=== PATIENT | female | born 1990 | race American Indian/Alaskan Native ===

== ENCOUNTER 2019-01-27 05:55 | Emergency (ER) | payer OTHER ==
[2019-01-27 07:45] VITALS: BP 134/89
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
== END 2019-01-27 08:52 | disposition home or self-care (01) ==
LOC: ED 05:55
DX: S43.401A Unspecified sprain of right shoulder joint, initial encounter (principal); V89.2XXA Person injured in unspecified motor-vehicle accident, traffic, initial encounter; Y93.89 Activity, other specified; Y92.488 Other paved roadways as the place of occurrence of the external cause; Y99.8 Other external cause status
CPT/HCPCS: 99283

== ENCOUNTER 2019-04-11 20:58 | Emergency (ER) | payer SELFPAY ==
--- NOTE | 2019-04-11 21:08 | Emergency Department Report ---
Blank Doc - Documentation Documentation: pt states has nausea for two weeks no V/D surapubic cramping LNMP: February 15-march 18 no urinary sx never had before "states her nipples hurt" has not taken anything at all no PMHx no daily meds no allergies to medication non smoker non drinker no drug use
[2019-04-11 21:29] LABS: Basophils # (Auto) 0.1 K/mm3 (0.0-0.1); Eosinophils # (Auto) 0.1 K/mm3 (0.0-0.4); Eosinophils % (Auto) 0.6 % (0.0-4.3); Hematocrit 41.4 % (30.3-42.9); Hemoglobin 13.6 gm/dl (10.1-14.3); Lymphocytes % (Auto) 33.3 % (13.4-35.0); Mean Corpuscular HGB Conc 33 % (30-34); Mean Corpuscular Volume 83 fl (79-97); Monocytes # (Auto) 0.5 K/mm3 (0.0-0.8); Platelet Count 259 K/mm3 (140-440); Red Blood Count 5.01 M/mm3 (3.65-5.03); Red Cell Distribution Width 15.1 % (13.2-15.2)
[2019-04-11 21:35] LABS: BUN/Creatinine Ratio 9; Blood Urea Nitrogen 10 mg/dL (7-17); Hemolysis Index 4
[2019-04-11 22:49] LABS: HCG Qualitative,Urine Negative (Negative)
[2019-04-11 22:51] LABS: Bacteria,Urine 1+ /HPF (Negative); Bilirubin,Urine NEG (Negative); Blood,Urine NEG (Negative); Color,Urine Yellow (Yellow); Mucus,Urine 3+ /HPF; Protein,Urine <15 mg/dL mg/dL (Negative); Urobilinogen,Urine < 2.0 mg/dL (<2.0)
--- NOTE | 2019-04-12 01:51 | Emergency Department Report ---
ED Female HPI - General Chief complaint: Abdominal Pain Stated complaint: ABD PAIN Time Seen by Provider: 04/11/19 21:06 Source: patient Mode of arrival: Ambulatory Limitations: No Limitations - History of Present Illness Initial comments: pt presents for llq pain x 1 week intermittent with urinary frequency no fever no chills no n/v no back ingrid SHAFER Complaint: dysuria Onset/Timin -: week(s) Severity: moderate Severity scale (0 -10): 5 Quality: burning Consistency: constant Improves with: none, urination Are you Now?: No - Related Data Previous Rx's Medication Instructions Recorded Last Taken Type Cyclobenzaprine [Flexeril] 10 mg PO TID PRN #20 tablet 01/27/19 Unknown Rx Ibuprofen 800 mg PO TID 5 Days #15 tablet 01/27/19 Unknown Rx Ibuprofen [Motrin 800 MG tab] 800 mg PO Q8HR PRN #30 tablet 04/12/19 Unknown Rx Nitrofurantoin [place]/M-Cryst 100 mg PO Q12HR 7 Days #14 capsule 04/12/19 Unknown Rx [Macrobid CAP] Allergies Allergy/AdvReac Type Severity Reaction Status Date / Time No Known Allergies Allergy Verified 04/11/19 21:02 ED Review of Systems ROS: Stated complaint: ABD PAIN Other details as noted in HPI Constitutional: denies: chills, fever Eyes: denies: eye pain, eye discharge, vision change ENT: denies: ear pain, throat pain Respiratory: denies: cough, shortness of breath, wheezing Cardiovascular: denies: chest pain, palpitations Endocrine: no symptoms reported Gastrointestinal: denies: abdominal pain, nausea, diarrhea Genitourinary: frequency. denies: urgency, dysuria, hematuria, discharge, abnormal menses, dyspareunia Musculoskeletal: denies: back pain, joint swelling, arthralgia, myalgia Skin: denies: rash, lesions Neurological: numbness, confusion. denies: headache, weakness, paresthesias, vertigo Psychiatric: denies: anxiety, depression Hematological/Lymphatic: denies: easy bleeding, easy bruising ED Past Medical Hx - Past Medical History Previous Medical History?: No - Surgical History Past Surgical History?: No - Social History Smoking Status: Never Smoker Substance Use Type: None - Medications Home Medications: Home Medications Medication Instructions Recorded Confirmed Last Taken Type Cyclobenzaprine [Flexeril] 10 mg PO TID PRN #20 tablet 01/27/19 Unknown Rx Ibuprofen 800 mg PO TID 5 Days #15 tablet 01/27/19 Unknown Rx Ibuprofen [Motrin 800 MG tab] 800 mg PO Q8HR PRN #30 tablet 04/12/19 Unknown Rx Nitrofurantoin [place]/M-Cryst 100 mg PO Q12HR 7 Days #14 capsule 04/12/19 Unknown Rx [Macrobid CAP] ED Physical Exam - General Limitations: No Limitations General appearance: alert, in no apparent distress - Head Head exam: Present: normocephalic, normal inspection - Eye Eye exam: Present: normal appearance, PERRL, EOMI - ENT ENT exam: Present: normal orophraynx, mucous membranes moist, TM's normal bilaterally, normal external ear exam, other - Neck Neck exam: Present: normal inspection, full ROM. Absent: meningismus, lymphadenopathy - Respiratory Respiratory exam: Present: normal lung sounds bilaterally. Absent: respiratory distress, wheezes, stridor, chest wall tenderness - Cardiovascular Cardiovascular Exam: Present: regular rate, normal rhythm, bradycardia, tachycardia, irregular rhythm, normal heart sounds. Absent: systolic murmur, diastolic murmur, rubs, gallop - GI/Abdominal GI/Abdominal exam: Present: soft, normal bowel sounds. Absent: distended, tenderness, guarding, rebound, rigid, organomegaly, mass, bruit, hernia - Rectal Rectal exam: Present: deferred, normal inspection, normal rectal tone, decreased rectal tone. Absent: mass - External exam: Present: normal external exam Speculum exam: Present: normal speculum exam - Extremities Exam Extremities exam: Present: normal inspection, normal capillary refill, calf tenderness - Back Exam Back exam: Present: normal inspection, full ROM, CVA tenderness (R). Absent: tenderness, CVA tenderness (L), muscle spasm, paraspinal tenderness, vertebral tenderness, rash noted - Neurological Exam Neurological exam: Present: alert, oriented X3 ED Course Vital Signs 04/11/19 21:07 Temperature 98.7 F Pulse Rate 101 H Respiratory 19 Rate Blood Pressure 128/83 O2 Sat by Pulse 97 Oximetry ED Medical Decision Making - Lab Data Result diagrams: 04/11/19 21:14 04/11/19 21:14 Critical care attestation.: If time is entered above; I have spent that time in minutes in the direct care of this critically ill patient, excluding procedure time. ED Disposition Clinical Impression: Dysuria Abdominal pain Qualifiers: Abdominal location: unspecified location Qualified Code(s): R10.9 - Unspecified abdominal pain Disposition: TO HOME OR SELFCARE Is pt being admited?: No Does the pt Need Aspirin: No Condition: Stable Instructions: Abdominal Pain (ED), Dysuria (ED) Prescriptions: Nitrofurantoin [place]/M-Cryst [Macrobid CAP] 100 mg PO Q12HR 7 Days #14 capsule Ibuprofen [Motrin 800 MG tab] 800 mg PO Q8HR PRN #30 tablet PRN Reason: pain Referrals: [facility] [Outside] - 3-5 Days Forms: Work/School Release Form(ED)
[2019-04-12 02:00] VITALS: BP 128/76
== END 2019-04-12 02:00 | disposition home or self-care (01) ==
LOC: ED 20:58
DX: R30.0 Dysuria (principal); R10.9 Unspecified abdominal pain
CPT/HCPCS: 36415; 80048; 81001; 81025; 85025; 99283

== ENCOUNTER 2019-06-16 03:28 | Emergency (ER) | payer BC ==
[2019-06-16] MEDS ORDERED: NORCO 5/325 PO ONE (03:50)
--- NOTE | 2019-06-16 03:55 | Emergency Department Report ---
Upper Extremity - HPI Chief Complaint: Extremity Injury, Upper Stated Complaint: RT HAND FINGER INJURY Time Seen by Provider: 06/16/19 03:51 Upper Extremity: Right Index Finger (tip laceration superficial ) Occurred When: Today Mechanism: Crush (slammed in car door) Symptoms: Yes Pain with Movement, Yes Limited Range of Movement (restricted by pain ), Yes Laceration or Abrasion (small laceration ), No Deformity, No Numbness, No Weakness, No Swelling, No Bruising/Ecchymosis Other History: pt states right index finger accidentally slammed in car door causing small tip laceration bleeding controlled by direct pressure rom intact restricted by pain there is no deformity. ED Review of Systems ROS: Stated complaint: RT HAND FINGER INJURY Other details as noted in HPI Constitutional: denies: chills, fever Eyes: denies: eye pain, eye discharge, vision change ENT: denies: ear pain, throat pain Respiratory: denies: cough, shortness of breath, wheezing Cardiovascular: denies: chest pain, palpitations Endocrine: no symptoms reported Gastrointestinal: denies: abdominal pain, nausea, diarrhea Genitourinary: denies: urgency, dysuria, discharge Musculoskeletal: other (right finger tip laceration) Skin: other (laceration as above ). denies: rash, lesions Neurological: denies: headache, weakness, paresthesias Psychiatric: denies: anxiety, depression Hematological/Lymphatic: denies: easy bleeding, easy bruising ED Past Medical Hx - Past Medical History Previous Medical History?: No - Surgical History Past Surgical History?: No - Social History Smoking Status: Never Smoker Substance Use Type: None - Medications Home Medications: Home Medications Medication Instructions Recorded Confirmed Last Taken Type Cyclobenzaprine [Flexeril] 10 mg PO TID PRN #20 tablet 01/27/19 Unknown Rx Ibuprofen 800 mg PO TID 5 Days #15 tablet 01/27/19 Unknown Rx Ibuprofen [Motrin 800 MG tab] 800 mg PO Q8HR PRN #30 tablet 04/12/19 Unknown Rx Nitrofurantoin [place]/M-Cryst 100 mg PO Q12HR 7 Days #14 capsule 04/12/19 Unknown Rx [Macrobid CAP] Neomycin/Polymyxin B/Pramoxine 1 applicatio TP BID 10 Days #1 tube 06/16/19 Unknown Rx [Neosporin + Pain Relief Cream] traMADol [Ultram] 50 mg PO Q6HR PRN #12 tablet 06/16/19 Unknown Rx Upper Extremity Exam - Exam General: Vital signs noted. No distress. Alert and acting appropriately. Head and Torso: No HEENT Abnormality, No Neck Tenderness, No Chest/Lungs Abnormality, No Abdominal Tenderness, No Back Tenderness Shoulder Exam: Yes Normal Range of Motion in Shoulder, No Shoulder Tenderness, No Clavicle Tenderness, No Shoulder Deformity, No AC Joint Tenderness Arm Exam: No Arm/Humerus Tenderness, No Arm Deformity Elbow: No Elbow Tenderness, No Normal Range of Motion in Elbow, No Elbow Deformity Forearm: No Forearm Tenderness, No Forearm Deformity, No Pain with Pronation, No Pain with Supination Wrist: Yes Normal ROM in Wrist, No Wrist Tenderness, No Wrist Deformity, No S nuffbox Tenderness, No Pain with Axial Thumb Compression Hand: Yes Digit Tenderness, Yes Normal ROM in Digit(s), No Hand Tenderness, No Digit(s) Deformity, No Tendon Dysfunction CMS Exam: Yes Broken Skin (right index finger tip ), Yes Normal Distal Pulses, Yes Normal Capillary Refill, Yes Normal Distal Sensation - Laceration /Wound Repair Right Distal Dorsal Finger Wound Location: upper extremity Wound Length (cm): 1 (less than 1 cm superficial ) Wound's Depth, Shape: superficial Wound Explored: clean Irrigated w/ Saline (ccs): 10 Betadine Prep?: Yes Anesthesia: 1% Lidocaine Volume Anesthetic (ccs): 1 (digital block ) Wound Debrided: none required Number of Sutures: 0 (bandaid ) Layer Closure?: No Sterile Dressing Applied?: Yes Progress: right distal index finger tip laceration no deformity bleeding controlled by direct press, wound cleaned with betadine solution, irrigated with sterile saline x 10cc , wound is superficial, bandaid applied rom remains intact no bleeding , CMS intact pt given wound care instructions. pt verbalized agreement and understanding of same. ED Medical Decision Making - Radiology Data Radiology results: report reviewed, image reviewed no fracture no soft tissue abnormality , - Medical Decision Making xray no fracture no soft tissue abnormality , tetanus is up to date, pt given wound care instructions, pain is resolved , rom intact shot man < 3 sec bilat plan dc to home with rx for ultram prn pain, pt with use otc neosporin , follow up with pcp in 2-3 days for wound check return to ed if symptoms worsen. pt dc'd to home in stable condition at this time. vital signs: 121/81, 16m 87, 98.3, 99% Critical care attestation.: If time is entered above; I have spent that time in minutes in the direct care of this critically ill patient, excluding procedure time. ED Disposition Clinical Impression: Finger laceration Qualifiers: Encounter type: initial encounter Finger: index finger Damage to nail status: without damage Foreign body presence: without foreign body Laterality: right Qualified Code(s): S61.210A - Laceration without foreign body of right index finger without damage to nail, initial encounter Sprain, finger Qualifiers: Encounter type: initial encounter Finger: index finger Sprain of finger site: interphalangeal joint Laterality: right Qualified Code(s): S63.630A - Sprain of interphalangeal joint of right index finger, initial encounter Disposition: TO HOME OR SELFCARE Is pt being admited?: No Does the pt Need Aspirin: No Condition: Stable Instructions: Finger Sprain (ED) Prescriptions: Neomycin/Polymyxin B/Pramoxine [Neosporin + Pain Relief Cream] 1 applicatio TP BID 10 Days #1 tube traMADol [Ultram] 50 mg PO Q6HR PRN #12 tablet PRN Reason: Pain Referrals: ANGY PERKINS MD [Primary Care Provider] - 3-5 Days Forms: Work/School Release Form(ED) Time of Disposition: 04:29
--- NOTE | 2019-06-16 04:20 | XRay Report ---
RIGHT HAND 3 VIEWS INDICATION / CLINICAL INFORMATION: Right index finger pain after smashing with car door. Small laceration at finger tip. COMPARISON: None available. FINDINGS: BONES and JOINT(S): No acute fracture or subluxation. No significant arthritis. SOFT TISSUES: No significant abnormality. ADDITIONAL FINDINGS: None. IMPRESSION: No acute findings. Signer Name: Billy Eng MD Signed: 06/16/2019 4:16 AM Workstation Name: [id number]
== END 2019-06-16 05:34 | disposition home or self-care (01) ==
LOC: ED 03:28
DX: S61.210A Laceration without foreign body of right index finger without damage to nail, initial encounter (principal); S63.630A Sprain of interphalangeal joint of right index finger, initial encounter; Z79.899 Other long term (current) drug therapy; W23.0XXA Caught, crushed, jammed, or pinched between moving objects, initial encounter; Y93.89 Activity, other specified; Y92.89 Other specified places as the place of occurrence of the external cause; Y99.8 Other external cause status
CPT/HCPCS: 99283

== ENCOUNTER 2019-11-28 13:23 | Emergency (ER) | payer SELFPAY ==
[2019-11-28 13:31] VITALS: BP 134/86
--- NOTE | 2019-11-28 13:57 | Event Note ---
ED Screening Note Date of service: 11/28/19 Time: 13:55 ED Screening Note: Pt complains of lower abdominal pain with urinating and dysuria x 4 days +frequency +hematuria This initial assessment/diagnostic orders/clinical plan/treatment(s) is/are subject to change based on patients health status, clinical progression and re- assessment by fellow clinical providers in the ED. Further treatment and workup at subsequent clinical providers discretion. Patient/guardian urged not to elope from the ED as their condition may be serious if not clinically assessed and managed. Initial orders include: UA
[2019-11-28] MEDS ORDERED: IBUPROFEN 600 MG TAB PO ONE (14:00)
[2019-11-28 14:24] LABS: Bilirubin,Urine NEG (Negative); Blood,Urine LG (Negative); Color,Urine Yellow (Yellow); Urobilinogen,Urine < 2.0 mg/dL (<2.0)
[2019-11-28 14:25] LABS: HCG Qualitative,Urine Negative (Negative); Protein,Urine >500 mg/dL (Negative); RBC,Urine > 182.0 /HPF (0.0-6.0); WBC,Urine > 182.0 /HPF (0.0-6.0)
--- NOTE | 2019-11-28 14:33 | Emergency Department Report ---
ED General Adult HPI - General Chief complaint: Urogenital-Female Stated complaint: PELVIC PAIN Time Seen by Provider: 11/28/19 13:55 Source: patient Mode of arrival: Ambulatory Limitations: No Limitations - History of Present Illness Initial comments: 29 yo AA F pt complains of lower abdominal pain with urinating and dysuria x 4 days. Admits to urinary frequency and hematuria. She denies any fever/chills/sweats, vaginal discharge/bleeding, flank pain, or hx of kidney stones. She rates her pain as a 9/10 in severity and describes the pain as stabbing and burning. -: Sudden - Related Data Previous Rx's Medication Instructions Recorded Last Taken Type Cyclobenzaprine [Flexeril] 10 mg PO TID PRN #20 tablet 01/27/19 Unknown Rx Ibuprofen 800 mg PO TID 5 Days #15 tablet 01/27/19 Unknown Rx Ibuprofen [Motrin 800 MG tab] 800 mg PO Q8HR PRN #30 tablet 04/12/19 Unknown Rx Nitrofurantoin [place]/M-Cryst 100 mg PO Q12HR 7 Days #14 capsule 04/12/19 Unknown Rx [Macrobid CAP] Neomycin/Polymyxin B/Pramoxine 1 applicatio TP BID 10 Days #1 tube 06/16/19 Unknown Rx [Neosporin + Pain Relief Cream] traMADoL [Ultram] 50 mg PO Q6HR PRN #12 tablet 06/16/19 Unknown Rx Ibuprofen [Motrin 800 MG tab] 800 mg PO Q8HR PRN #15 tablet 11/28/19 Unknown Rx Phenazopyridine [Pyridium] 200 mg PO TID #6 tab 11/28/19 Unknown Rx Sulfamethoxazole/Trimethoprim 1 each PO BID 5 Days #10 tablet 11/28/19 Unknown Rx [Bactrim DS TAB] Allergies Allergy/AdvReac Type Severity Reaction Status Date / Time No Known Allergies Allergy Verified 04/11/19 21:02 ED Review of Systems ROS: Stated complaint: PELVIC PAIN Other details as noted in HPI Comment: All other systems reviewed and negative Genitourinary: as per HPI ED Past Medical Hx - Past Medical History Previous Medical History?: No - Surgical History Past Surgical History?: No - Social History Smoking Status: Never Smoker Substance Use Type: None - Medications Home Medications: Home Medications Medication Instructions Recorded Confirmed Last Taken Type Cyclobenzaprine [Flexeril] 10 mg PO TID PRN #20 tablet 01/27/19 Unknown Rx Ibuprofen 800 mg PO TID 5 Days #15 tablet 01/27/19 Unknown Rx Ibuprofen [Motrin 800 MG tab] 800 mg PO Q8HR PRN #30 tablet 04/12/19 Unknown Rx Nitrofurantoin [place]/M-Cryst 100 mg PO Q12HR 7 Days #14 capsule 04/12/19 Unknown Rx [Macrobid CAP] Neomycin/Polymyxin B/Pramoxine 1 applicatio TP BID 10 Days #1 tube 06/16/19 Unknown Rx [Neosporin + Pain Relief Cream] traMADoL [Ultram] 50 mg PO Q6HR PRN #12 tablet 06/16/19 Unknown Rx Ibuprofen [Motrin 800 MG tab] 800 mg PO Q8HR PRN #15 tablet 11/28/19 Unknown Rx Phenazopyridine [Pyridium] 200 mg PO TID #6 tab 11/28/19 Unknown Rx Sulfamethoxazole/Trimethoprim 1 each PO BID 5 Days #10 tablet 11/28/19 Unknown Rx [Bactrim DS TAB] ED Physical Exam - General Limitations: No Limitations General appearance: alert, in no apparent distress - Head Head exam: Present: atraumatic, normocephalic - Eye Eye exam: Present: normal appearance - Neck Neck exam: Present: normal inspection - Respiratory Respiratory exam: Present: normal lung sounds bilaterally. Absent: respiratory distress - Cardiovascular Cardiovascular Exam: Present: regular rate, normal rhythm. Absent: systolic murmur, diastolic murmur, rubs, gallop - GI/Abdominal GI/Abdominal exam: Present: soft, normal bowel sounds. Absent: distended, tenderness, guarding, rebound, rigid - Extremities Exam Extremities exam: Present: normal inspection - Back Exam Back exam: Present: normal inspection. Absent: CVA tenderness (R), CVA tenderness (L) - Neurological Exam Neurological exam: Present: alert, oriented X3 - Psychiatric Psychiatric exam: Present: normal affect, normal mood - Skin Skin exam: Present: warm, dry, intact, normal color. Absent: rash ED Course Vital Signs 11/28/19 13:25 Temperature 98.4 F Pulse Rate 117 H Respiratory 18 Rate Blood Pressure 134/86 O2 Sat by Pulse 96 Oximetry ED Medical Decision Making - Lab Data Lab Results 11/28/19 Range/Units Unknown Urine Color Yellow (Yellow) Urine Turbidity Turbid (Clear) Urine pH 5.0 (5.0-7.0) Ur Specific [place] 1.024 (1.003-1.030) Urine Protein >500 (Negative) mg/dL Urine Glucose (UA) Neg (Negative) mg/dL Urine Ketones Neg (Negative) mg/dL Urine Blood Lg (Negative) Urine Nitrite Neg (Negative) Urine Bilirubin Neg (Negative) Urine Urobilinogen < 2.0 (<2.0) mg/dL Ur Leukocyte Esterase Mod (Negative) Urine WBC (Auto) > 182.0 H (0.0-6.0) /HPF Urine RBC (Auto) > 182.0 (0.0-6.0) /HPF Urine HCG, Qual Negative (Negative) - Radiology Data Radiology results: report reviewed - Medical Decision Making 29 yo AA F pt complains of lower abdominal pain with urinating and dysuria x 4 days. Abdominal exam is normal without CVA tenderness. She denies vaginal discharge or bleeding. UA shows WBCs > 182. Vitals are normal. Pt is stable for d/c home. Prescription for bactrim given. Recommend f/u with PCCP in 3-5 days. Discussed strict return precautions in detail with pt who states understanding. Critical care attestation.: If time is entered above; I have spent that time in minutes in the direct care of this critically ill patient, excluding procedure time. ED Disposition Clinical Impression: Cystitis Disposition: DC-01 TO HOME OR SELFCARE Is pt being admited?: No Condition: Stable Instructions: Urinary Tract Infection in Women (ED) Prescriptions: Sulfamethoxazole/Trimethoprim [Bactrim DS TAB] 1 each PO BID 5 Days #10 tablet Ibuprofen [Motrin 800 MG tab] 800 mg PO Q8HR PRN #15 tablet PRN Reason: pain Phenazopyridine [Pyridium] 200 mg PO TID #6 tab Referrals: PRIMARY CARE, [Referring] - 3-5 Days
== END 2019-11-28 15:15 | disposition home or self-care (01) ==
LOC: ED 13:23
DX: N30.90 Cystitis, unspecified without hematuria (principal); Z79.899 Other long term (current) drug therapy
CPT/HCPCS: 81001; 81025

== ENCOUNTER 2019-12-26 20:48 | Emergency (ER) | payer SELFPAY ==
[2019-12-26 21:59] VITALS: BP 130/78
[2019-12-27] MEDS ORDERED: diphenhydrAMINE 25 MG CAP PO ONE (00:23)
[2019-12-27] MEDS ORDERED: predniSONE 20 MG TAB PO ONE (00:23)
[2019-12-27] MEDS ORDERED: FAMOTIDINE 20 MG TAB PO ONE (00:23)
--- NOTE | 2019-12-27 00:29 | Emergency Department Report ---
ED General Adult HPI - General Chief complaint: Animal Bite Stated complaint: POSS SPIDER BITE Source: patient Mode of arrival: Ambulatory Limitations: No Limitations - History of Present Illness Initial comments: Patient is a 29-year-old Female with no past medical history who presents to the ED with complaint of acute onset persistent itchy erythematous maculopapular rash on the trunk after being bitten by unknown insect 2 days ago. Patient states that she spent the night at a friend's house and thereafter developed these itchy burning sensation with erythematous rash in the abdomen diffusely. Patient states that in the last 12 hours, the redness, swelling and burning pain worsened. Patient denies swollen lips or tongue, dysphagia nausea and vomiting, diarrhea, abdominal pain, fever, chills, cough, shortness of breath, wheezing, dysphonia, nasal and sinus congestion. MD Complaint: Itchy erythematous rash on the abdomen -: Sudden, days(s) (2) Location: abdomen Radiation: non-radiation Severity scale (0 -10): 5 Quality: burning, aching, sharp Consistency: constant Improves with: none Worsens with: none Associated Symptoms: denies other symptoms, rash (erythematous maculopapular itchy urticarial rashes in the abdomen diffusely). denies: confusion, chest pain, cough, diaphoresis, headaches, loss of appetite, malaise, nausea/vomiting, seizure, shortness of breath, weakness Treatments Prior to Arrival: none - Related Data Previous Rx's Medication Instructions Recorded Last Taken Type Cyclobenzaprine [Flexeril] 10 mg PO TID PRN #20 tablet 01/27/19 Unknown Rx Ibuprofen 800 mg PO TID 5 Days #15 tablet 01/27/19 Unknown Rx Ibuprofen [Motrin 800 MG tab] 800 mg PO Q8HR PRN #30 tablet 04/12/19 Unknown Rx Nitrofurantoin [place]/M-Cryst 100 mg PO Q12HR 7 Days #14 capsule 04/12/19 Unknown Rx [Macrobid CAP] Neomycin/Polymyxin B/Pramoxine 1 applicatio TP BID 10 Days #1 tube 06/16/19 Unknown Rx [Neosporin + Pain Relief Cream] traMADoL [Ultram] 50 mg PO Q6HR PRN #12 tablet 06/16/19 Unknown Rx Ibuprofen [Motrin 800 MG tab] 800 mg PO Q8HR PRN #15 tablet 11/28/19 Unknown Rx Phenazopyridine [Pyridium] 200 mg PO TID #6 tab 11/28/19 Unknown Rx Sulfamethoxazole/Trimethoprim 1 each PO BID 5 Days #10 tablet 11/28/19 Unknown Rx [Bactrim DS TAB] Famotidine [Pepcid] 20 mg PO Q12H #30 tablet 12/27/19 Unknown Rx Prednisone [predniSONE 10 mg 10 mg PO .TAPER #21 tab.ds.pk 12/27/19 Unknown Rx (6-Day Pack, 21 Tabs)] diphenhydrAMINE [Benadryl CAP] 25 mg PO Q6HR PRN #30 capsule 12/27/19 Unknown Rx Allergies Allergy/AdvReac Type Severity Reaction Status Date / Time No Known Allergies Allergy Verified 04/11/19 21:02 ED Review of Systems ROS: Stated complaint: POSS SPIDER BITE Other details as noted in HPI Constitutional: denies: chills, fever Eyes: denies: eye pain, eye discharge, vision change ENT: denies: ear pain, throat pain Respiratory: denies: cough, shortness of breath, wheezing Cardiovascular: denies: chest pain, palpitations Endocrine: no symptoms reported Gastrointestinal: denies: abdominal pain, nausea, diarrhea Genitourinary: denies: urgency, dysuria, discharge Musculoskeletal: denies: back pain, joint swelling, arthralgia Skin: rash (itchy erythematous maculopapular urticarial rashes diffusely in the abdominal wall), change in color (erythematous maculopapular rash in the abdominal wall), pruritus. denies: lesions Neurological: denies: headache, weakness, paresthesias Psychiatric: denies: anxiety, depression Hematological/Lymphatic: denies: easy bleeding, easy bruising ED Past Medical Hx - Past Medical History Previous Medical History?: No - Surgical History Past Surgical History?: Yes Additional Surgical History: Oral surgery - Social History Smoking Status: Never Smoker - Medications Home Medications: Home Medications Medication Instructions Recorded Confirmed Last Taken Type Cyclobenzaprine [Flexeril] 10 mg PO TID PRN #20 tablet 01/27/19 Unknown Rx Ibuprofen 800 mg PO TID 5 Days #15 tablet 01/27/19 Unknown Rx Ibuprofen [Motrin 800 MG tab] 800 mg PO Q8HR PRN #30 tablet 04/12/19 Unknown Rx Nitrofurantoin [place]/M-Cryst 100 mg PO Q12HR 7 Days #14 capsule 04/12/19 Unknown Rx [Macrobid CAP] Neomycin/Polymyxin B/Pramoxine 1 applicatio TP BID 10 Days #1 tube 06/16/19 Unknown Rx [Neosporin + Pain Relief Cream] traMADoL [Ultram] 50 mg PO Q6HR PRN #12 tablet 06/16/19 Unknown Rx Ibuprofen [Motrin 800 MG tab] 800 mg PO Q8HR PRN #15 tablet 11/28/19 Unknown Rx Phenazopyridine [Pyridium] 200 mg PO TID #6 tab 11/28/19 Unknown Rx Sulfamethoxazole/Trimethoprim 1 each PO BID 5 Days #10 tablet 11/28/19 Unknown Rx [Bactrim DS TAB] Famotidine [Pepcid] 20 mg PO Q12H #30 tablet 12/27/19 Unknown Rx Prednisone [predniSONE 10 mg 10 mg PO .TAPER #21 tab.ds.pk 12/27/19 Unknown Rx (6-Day Pack, 21 Tabs)] diphenhydrAMINE [Benadryl CAP] 25 mg PO Q6HR PRN #30 capsule 12/27/19 Unknown Rx ED Physical Exam - General Limitations: No Limitations General appearance: alert, in no apparent distress - Head Head exam: Present: atraumatic, normocephalic, normal inspection - Eye Eye exam: Present: normal appearance, PERRL, EOMI Pupils: Present: normal accommodation - ENT ENT exam: Present: normal exam, normal orophraynx, mucous membranes moist, TM's normal bilaterally, normal external ear exam - Neck Neck exam: Present: normal inspection, full ROM - Respiratory Respiratory exam: Present: normal lung sounds bilaterally. Absent: respiratory distress, wheezes, rales, rhonchi, chest wall tenderness, accessory muscle use, decreased breath sounds - Cardiovascular Cardiovascular Exam: Present: regular rate, normal rhythm, normal heart sounds. Absent: systolic murmur, diastolic murmur, rubs, gallop - GI/Abdominal GI/Abdominal exam: Present: soft, normal bowel sounds. Absent: tenderness, guarding, hyperactive bowel sounds, hypoactive bowel sounds, organomegaly - Extremities Exam Extremities exam: Present: normal inspection, full ROM, normal capillary refill - Back Exam Back exam: Present: normal inspection, full ROM. Absent: tenderness, CVA tenderness (R), CVA tenderness (L), muscle spasm, paraspinal tenderness, vertebral tenderness - Neurological Exam Neurological exam: Present: alert, oriented X3, CN II-XII intact, normal gait, reflexes normal - Psychiatric Psychiatric exam: Present: normal affect, normal mood - Skin Skin exam: Present: warm, dry, intact, rash (diffuse erythematous maculopapular urticarial rash on the abdominal wall), erythema, urticaria ED Course Vital Signs 12/26/19 21:13 Temperature 98.0 F Pulse Rate 74 Respiratory 18 Rate Blood Pressure 130/78 O2 Sat by Pulse 100 Oximetry ED Medical Decision Making - Medical Decision Making This is a 29-year-old female who presented to the ED with acute onset persistent itchy erythematous maculopapular urticarial rashes in the abdominal wall after being bitten by an unknown insect possibly bedbugs at a friend's house 2 days ago. In the ED, patient is alert and oriented 3 and is not in distress but anxious about the insect bite. Patient was treated in the ED with prednisone, Pepcid and Benadryl. On reevaluation, patient's itching resolved with medications. Patient was discharged home on medications and advised to follow- up with her primary care physician in 5-7 days for reevaluation or return to the ED immediately if symptoms get worse. - Differential Diagnosis Urticaria; Insect bite allergic reaction; Cellulitis Critical care attestation.: If time is entered above; I have spent that time in minutes in the direct care of this critically ill patient, excluding procedure time. ED Disposition Clinical Impression: Acute urticaria, Itching with irritation, Allergic to insect bites and stings Acute allergic reaction Qualifiers: Encounter type: initial encounter Qualified Code(s): T78.40XA - Allergy, unspecified, initial encounter Disposition: DC-01 TO HOME OR SELFCARE Is pt being admited?: No Does the pt Need Aspirin: No Condition: Stable Instructions: Insect Bite or Sting (ED), Itchy Skin (ED), Urticaria (ED) Additional Instructions: Take medication with food, drink plenty of fluids and follow-up with her primary care physician in 5-7 days for reevaluation. Return to the ED immediately if symptoms get worse. Prescriptions: diphenhydrAMINE [Benadryl CAP] 25 mg PO Q6HR PRN #30 capsule PRN Reason: Itching Famotidine [Pepcid] 20 mg PO Q12H #30 tablet Prednisone [predniSONE 10 mg (6-Day Pack, 21 Tabs)] 10 mg PO .TAPER #21 tab.ds.pk Referrals: MAMTA PAEZ MD [Staff Physician] - 3-5 Days Time of Disposition: 00:34 Print Language: BANGLADESHI
== END 2019-12-27 00:55 | disposition home or self-care (01) ==
LOC: ED 20:48
DX: T78.40XA Allergy, unspecified, initial encounter (principal); L30.9 Dermatitis, unspecified; Z79.899 Other long term (current) drug therapy; X58.XXXA Exposure to other specified factors, initial encounter
CPT/HCPCS: 99282; J7512